=== PATIENT | female | born 1985 | race Caucasian/White ===

== ENCOUNTER 2022-09-07 11:35 | Outpatient (REF) | payer MEDICAID, SELFPAY ==
[2022-09-08 05:10] LABS: ~Hepatitis B Surface Antibody REACTIVE (Nonreactive)
[2022-09-08 11:08] LABS: Rubeola IgG (Measles) >300.00 AU/mL
== END 2022-09-07 11:36 | disposition home or self-care (01) ==
LOC: HO.LAB 11:35
PROVIDERS: Visit Provider Physician Assistant Medical
DX: Z02.1 Encounter for pre-employment examination (principal)
CPT/HCPCS: 36415; 86706; 86735; 86762; 86765; 86787